=== PATIENT | male | born 1950 | race Caucasian/White ===

== ENCOUNTER 2020-05-21 10:57 | Emergency (ER) | payer MEDICARE ==
[~2020-05-21] VITALS: Ht 182.9 cm; Wt 110.2 kg
[2020-05-21] MEDS ORDERED: DIGITEK250 MCG PO (12:21)
[2020-05-21] MEDS ORDERED: TYLENOL325 MG PO (12:21)
[2020-05-21] MEDS ORDERED: LIPITOR20 MG (12:21)
[2020-05-21] MEDS ORDERED: ZESTRIL5 MG PO (12:22)
[2020-05-21] MEDS ORDERED: FUROSEMIDE20 MG PO (12:22)
[2020-05-21] MEDS ORDERED: GABAPENTIN300 MG PO (12:22)
[2020-05-21] MEDS ORDERED: DIVALPROEX SOD500 MG PO (12:22)
[2020-05-21] MEDS ORDERED: LEVOTHYROXINE25 MCG PO (12:22)
[2020-05-21] MEDS ORDERED: PANTOPRAZOLE SO40 M2 PO (12:23)
[2020-05-21] MEDS ORDERED: LOPERAMIDE MISC (12:23)
[2020-05-21] MEDS ORDERED: METFORMIN HCL500 MG PO (12:23)
[2020-05-21] MEDS ORDERED: METOPROLOL SUC100 MG PO (12:23)
[2020-05-21] MEDS ORDERED: RISPERDAL0.5 MG PO (12:25)
[2020-05-21] MEDS ORDERED: XARELTO20 MG PO (12:25)
[2020-05-21] MEDS ORDERED: THERA-TABS1 EACH PO (12:26)
--- NOTE | 2020-05-21 18:17 | EKG ---
[facility] [address] [facility] [place], [place] [address] Signed Atrial fibrillation with rapid ventricular response Rightward axis Abnormal QRS-T angle, consider primary T wave abnormality Abnormal ECG No previous ECGs available Confirmed by GURDEEP MARTINEZ DO ([id number]) on 05/21/2020 6:17:14 PM Electronically Signed By: GURDEEP MARTINEZ DO 05/21/20 1817 PATIENT NAME: DELIANELY JOSE Electrocardiogram DATE OF : 52 PHYSICIAN: GURDEEP MARTINEZ DO REPORT #: [id number] REPORT IS CONFIDENTIAL AND NOT TO BE RELEASED WITHOUT AUTHORIZATION
== END 2020-05-21 14:18 | disposition home or self-care (01) ==
LOC: ED 10:57
DX: I50.9 Heart failure, unspecified (principal); I48.91 Unspecified atrial fibrillation; J44.9 Chronic obstructive pulmonary disease, unspecified; F17.200 Nicotine dependence, unspecified, uncomplicated; Z79.899 Other long term (current) drug therapy; Z79.84 Long term (current) use of oral hypoglycemic drugs
CPT/HCPCS: 71045; 80053; 83735; 83880; 84484; 85025; 93005; 93010; 96374; 99285-25; J1940

== ENCOUNTER 2020-06-03 05:14 | Emergency (ER) | payer MEDICARE ==
[~2020-06-03] VITALS: Ht 182.9 cm; Wt 119.0 kg
[~2020-06-03 05:14] MED LIST: DIGITEK250 MCG PO; DIVALPROEX SOD500 M1 PO; FUROSEMIDE20 MG PO; GABAPENTIN300 MG PO; LEVOTHYROXINE25 MCG PO; LIPITOR20 MG PO; LOPERAMIDE2 MG PO; METFORMIN HCL500 MG PO; METOPROLOL SUC100 MG PO; PANTOPRAZOLE SO40 MG PO; RISPERDAL0.5 MG PO; THERA-TABS1 EACH PO; TYLENOL325 MG PO; XARELTO20 MG PO; ZESTRIL5 MG PO
--- OUTSIDE RECORDS SUMMARY | 2020-06-03 05:16 | XMS ---
PreManage Notification: NELY LIN Security Glacing Machine Tender Events No recent Security Events currently on file CRITERIA MET - [facility] - 2 Visits in 30 Days CARE PROVIDERS There are no care providers on record at this time. Alfredo has no Care Guidelines for this patient. [facility] MO[facility] NOTE: Visits indicate total known visits. ED/C VISIT TRACKING (12 MO.) 06/03/2020 05:[address] [facility] [place] TYPE: Emergency COMPLAINT: - SOB 05/21/2020 10:[address] [facility] [place] TYPE: Emergency COMPLAINT: - SOB, HIGH B/P DIAGNOSES: - Unspecified atrial fibrillation - intermediate (current) use of oral hypoglycemic drugs - Chronic obstructive pulmonary disease, unspecified - Heart failure, unspecified - Shortness of breath - Other extermination supervisor (current) drug therapy - Nicotine dependence, unspecified, uncomplicated INPATIENT VISIT TRACKING (12 MO.) No inpatient visits to display in this time frame [email or web address]
--- NOTE | 2020-06-04 11:10 | EKG ---
[facility] [address] [facility] [place] [address] Signed Atrial fibrillation with rapid ventricular response Incomplete right bundle branch block Nonspecific ST abnormality Abnormal ECG When compared with ECG of 21-MAY-2020 11:09, Nonspecific T wave abnormality now evident in Lateral leads Confirmed by CASSIE KEN MD ([id number]) on 06/04/2020 11:09:54 AM Electronically Signed By: CASSIE KEN MD 06/04/20 1110 PATIENT NAME: NELY LIN Electrocardiogram DATE OF : 52 PHYSICIAN: CASSIE KEN MD REPORT #: [id number] REPORT IS CONFIDENTIAL AND NOT TO BE RELEASED WITHOUT AUTHORIZATION
== END 2020-06-03 06:19 | disposition left against medical advice (07) ==
LOC: ED 05:14
DX: R06.00 Dyspnea, unspecified (principal); I48.91 Unspecified atrial fibrillation; F17.200 Nicotine dependence, unspecified, uncomplicated; J44.9 Chronic obstructive pulmonary disease, unspecified; Z79.899 Other long term (current) drug therapy; Z79.84 Long term (current) use of oral hypoglycemic drugs
CPT/HCPCS: 71045; 80053; 80162; 83735; 83880; 84484; 85025; 85610; 85730; 93005; 93010; 96374; 96375; 99285-25; J1940

== ENCOUNTER 2020-06-03 07:49 | Inpatient (IN) | payer MEDICARE ==
[~2020-06-03] VITALS: Ht 182.9 cm; Wt 113.3 kg
[~2020-06-03 07:49] MED LIST changes: +LOPERAMIDE MISC; -LOPERAMIDE2 MG PO
--- OUTSIDE RECORDS SUMMARY | 2020-06-03 07:52 | XMS ---
PreManage Notification: NELY LIN Security [employer] Sales Manager Events No recent Security Events currently on file CRITERIA MET - [facility] - 2 Visits in 30 Days CARE PROVIDERS There are no care providers on record at this time. Alfredo has no Care Guidelines for this patient. Jesus VISIT COUNT (12 MO.) 3 [facility] [place] [facility]. TOTAL 3 NOTE: Visits indicate total known visits. ED/[facility] VISIT TRACKING (12 MO.) 06/03/2020 07:50 [facility] [place] TYPE: Emergency COMPLAINT: - SHORTNESS OF BREATH 06/03/2020 05:15 [facility] [place] TYPE: Emergency COMPLAINT: - SOB 05/21/2020 10:58 [facility] [place] TYPE: Emergency COMPLAINT: - SOB, HIGH B/P DIAGNOSES: - Unspecified atrial fibrillation - implementation project coordinator (current) use of oral hypoglycemic drugs - Chronic obstructive pulmonary disease, unspecified - Heart failure, unspecified - Shortness of breath - Other social sciences professor (current) drug therapy - Nicotine dependence, unspecified, uncomplicated INPATIENT VISIT TRACKING (12 MO.) No inpatient visits to display in this time frame [email or web address]
--- NOTE | 2020-06-03 13:11 | NUR ---
PT RECEIVED FROM ER. PT ON ROOM AIR, PT STATES FEELING SOB ESPECIALLY WITH EXERTION, O2 SATS 98%, LUNG SOUNDS COARSE, OCCASIONAL DRY COUGH. PT WITH DILTIAZE, GGT AT 5MG/HR INTIALLY, INCREASED TO 10MG/HR PER PARAMETERS, HR IN 110-120S, HYPERTENSIVE. PT GIVEN DIGOXIN 250MG IV, LASIX 80MG IV AND 2G MAG RIDER PER ORDER. PT WITH FREQUENT USE OF URINAL, ASSISTED TO BSC AND HAD BM. 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 PT WITH 3+ EDEMA IN BLE, 1+ EDEMA IN THIGHS AND 1+ EDEMA IN LOWER ABD AND BACK. PT BLOOD GLUCOSE 124, SS HUMALOG HELD. PT GIVEN SUGAR FREE PUDDING AND DIET PEPSI FOR LUNCH, DECLINES ANYTHING ELSE. CALL LIGHT WITHIN REACH, CAREGIVER AT BEDSIDE. PT DENIES OTHER NEEDS AT THIS TIME.
--- NOTE | 2020-06-03 13:57 | NUR ---
PATIENT REFUSED MARIA CATH. NURSE ATTEMPTED TO EXPLAIN MEDICAL INDICATION, PATIENT INTERRUPTED AND REPLIED ABSOLUTLY "NOT." CAREGIVER IN THE ROOM ASKED HIM TO NOT BE RUDE, PATIENT ASKED CAREGIVER TO LEAVE.
--- NOTE | 2020-06-03 14:03 | NUR ---
pt. urinated in bed. changed bed linens and gowns.
--- NOTE | 2020-06-03 14:15 | NUR ---
PT SITTING UP TO EDGE OF BED, ATTEMPTING TO WALK TO BATHROOM, ASSISTED BACK TO BED, ASSISTED TO USE URINAL. PT STATING WE ARE KEEPING HIM HOSTAGE, ASKING TO LEAVE, ASKI FOR A TAXI, BECAME VERBALLY AGRESSIVE AND AGGITATED. MULTIPLE RN ATTEMPTED TO SPEAK WITH PT BUT PT UNWILLING TO COOPERATE. CALLED AND REQUESTED TO COME TO ROOM PT IS REQUESTING TO LEAVE AMA. AMA PAPER FILLED OUT. PT NOW AGREEABLE TO LAY DOWN AND SLEEP AND STAY UNTIL 1800.
--- NOTE | 2020-06-03 14:41 | NUR ---
PT ASSISTED WITH USING URINAL, VOIDED 275, ADDITIONAL URINE ON BED. PT INTITIALLY ASKING FOR CLOTHING, BUT THEN STATES HE IS WILLING TO STAY UNTIL TOMORROW AM. COOPERATIVE TO LAY BACK IN BED. PT ASKED IF HE WOULD BE OK WITH TESTING AND REGULATING TECHNICIAN COMPLETING ORDERED ECHO, PT REFUSING.
--- NOTE | 2020-06-03 15:15 | NUR ---
PT UP AND INSISTING TO LEAVE AMA, AMA PAPER SIGNED. PT ASSISTED TO GET DRESSED. IV CATH REMOVED. PT BELONGINGS RETURNED. PT AWAITING RIDE.
--- NOTE | 2020-06-03 16:00 | NUR ---
PT DC AMA AT 1540. CAREGIVER SADI PROVIDED RIDE HOME.
== END 2020-06-03 15:40 | disposition left against medical advice (07) | DRG 308 ==
LOC: ED 07:49 → CCU 11:14
PROVIDERS: ADMIT Internal Medicine; ATTEND Internal Medicine
DX: I48.21 Permanent atrial fibrillation (principal); I50.33 Acute on chronic diastolic (congestive) heart failure; I11.0 Hypertensive heart disease with heart failure; Z20.828 Contact with and (suspected) exposure to other viral communicable diseases; E11.42 Type 2 diabetes mellitus with diabetic polyneuropathy; J44.9 Chronic obstructive pulmonary disease, unspecified; E03.9 Hypothyroidism, unspecified; F17.200 Nicotine dependence, unspecified, uncomplicated; E78.5 Hyperlipidemia, unspecified; E11.51 Type 2 diabetes mellitus with diabetic peripheral angiopathy without gangrene; Z53.29 Procedure and treatment not carried out because of patient's decision for other reasons; Z95.820 Peripheral vascular angioplasty status with implants and grafts; Z87.820 Personal history of traumatic brain injury; Z79.899 Other long term (current) drug therapy; Z79.01 Long term (current) use of anticoagulants; Z79.84 Long term (current) use of oral hypoglycemic drugs
CPT/HCPCS: 36600; 80164; 82803; 83036; 83605; 83735; C9803; J0456; J0696; J1160; J1940; J3475; J7060; U0003

== ENCOUNTER 2020-06-04 07:50 | Inpatient (IN) | payer MEDICARE ==
[~2020-06-04] VITALS: Ht 182.9 cm; Wt 101.8 kg
[~2020-06-04 07:50] MED LIST changes: -LOPERAMIDE MISC; +LOPERAMIDE2 MG PO
--- OUTSIDE RECORDS SUMMARY | 2020-06-04 07:52 | XMS ---
PreManage Notification: NELY LIN Security Rubber Production Machine Operator Events No recent Security Events currently on file CRITERIA MET - [facility] - 2 Visits in 30 Days CARE PROVIDERS There are no care providers on record at this time. Alfredo has no Care Guidelines for this patient. Jesus VISIT COUNT (12 MO.) [address] [facility] TOTAL 4 NOTE: Visits indicate total known visits. ED/C VISIT TRACKING (12 MO.) 06/04/2020 07:[address] [facility] [place] TYPE: Emergency COMPLAINT: - SOB 06/03/2020 07:50 [facility] [place] TYPE: Emergency COMPLAINT: - SHORTNESS OF BREATH 06/03/2020 05:15 [facility] [place] TYPE: Emergency COMPLAINT: - SOB 05/21/2020 10:58 [facility] [place] TYPE: Emergency COMPLAINT: - SOB, HIGH B/P DIAGNOSES: - Unspecified atrial fibrillation - FCI (current) use of oral hypoglycemic drugs - Chronic obstructive pulmonary disease, unspecified - Heart failure, unspecified - Shortness of breath - Other resource management specialist (current) drug therapy - Nicotine dependence, unspecified, uncomplicated INPATIENT VISIT TRACKING (12 MO.) 06/03/2020 11:14 [facility] [place] TYPE: Critical Care COMPLAINT: - CHF EXACERBATION DIAGNOSES: - Acute on chronic diastolic (congestive) heart failure - FCI (current) use of anticoagulants - Hyperlipidemia, unspecified - Hypertensive heart disease with heart failure - Personal history of traumatic brain injury - Other halfway (current) drug therapy - Permanent atrial fibrillation - pizza chef (current) use of oral hypoglycemic drugs - Type 2 diabetes mellitus with diabetic polyneuropathy - Hypothyroidism, unspecified - Type 2 diabetes mellitus with diabetic peripheral angiopathy without gangrene - Procedure and treatment not carried out because of patient's decision for other reasons - Peripheral vascular angioplasty status with implants and grafts - Nicotine dependence, unspecified, uncomplicated - Chronic obstructive pulmonary disease, unspecified - Contact with and (suspected) exposure to other viral communicable diseases [email or web address]
--- NOTE | 2020-06-04 11:40 | NUR ---
Patient arrives from ED via stretcher with ER Nurse. Continues on Diltiazem drip at this time. Moves from stretcher to bed without assist. Heartrate increases with movement. Urinates twice after initial arrival to room 129. Assessment compeleted. Alert and oriented at this time. Informed of diet and fluids restriction. Verbalizes understanding.
--- NOTE | 2020-06-04 13:43 | NUR ---
SITTING IN BED, HEAD OF BED ELEVATED. CONTINENT OF URINE. DENIES NEEDS. CALL LIGHT IN REACH, BED RAILS UP X2.
--- NOTE | 2020-06-04 16:10 | NUR ---
PATIENT IN BED, JUST FINISHED PEEING. WATCHING TV. HE SAID HE LIVES ALONE AND EATS OUT A LOT. HE HAS NEVER BEEN TOLD TO FOLLOW A LOW SODIUM DIET BEFORE. I EXPLAINED THAT WE RECOMMEND NO MORE THAN 2,400 MG SODIUM FOR THE WHOLE DAY, THIS INCLUDES WHAT IS IN FOOD AND WHAT YOU ADD TO FOOD. HE LIKES POTTS - I TOLD HIM THAT IS A HIGH SODIUM FOOD THAT HE NEEDS TO LIMIT. I ALSO ENCOURAGED HIM TO COOK MORE AT HOME, BUT IT TAKES TIME TO GET USED TO A NEW HABIT SUCH THIS. HE DOES LOOK AT FOOD LABELS BUT DOES NOT PAY MUCH ATTENTION TO SODIUM. I SUGGESTED HE START LOOKING AT SODIUM CONTENT OF FOODS. PROVIDED A LIST OF LOW SODIUM SNACKS, RECOMMENDATIONS FOR FROZEN MEALS, AND NUTRITION THERAPY FOR HEART FAILURE WHICH INCLUDES A LIST OF FOODS RECOMMENDED AND FOODS NOT RECOMMENDED. IT ALSO INCLUDES TIPS SUCH LOOK FOR "LOW-SODIUM" OR "NO SALT ADDED" PRODUCTS. KEPT IT BRIEF THIS AFTERNOON. HE WOULD BENEFIT FROM A FOLLOW-UP VISIT TO REINFORCE THE IMPORTANCE OF A LOW SODIUM DIET. HE IS ON A 60 GM CONSISTENT CARB DIET WITH 1600 ML FR CURRENTLY. WILL PUT A NOTE INTO DR. KEN TO SEE IF HE WILL ADD 2 GRAM SODIUM FOR THE SECONDARY DIET.
--- NOTE | 2020-06-04 16:25 | NUR ---
REMAINS IN BED AT THIS TIME. CARDIZEM DRIP INFUSING. ALERT AND ORIENTED. ASSESSMENT COMPLETED.
--- NOTE | 2020-06-04 17:02 | NUR ---
Dr. Perez informed of short run of V-tach and updated on patient status. No new orders at this time.
--- NOTE | 2020-06-04 17:34 | NUR ---
RUN OF V-TACH [address] KEN NOTIFIED. TELEPHONE ORDERS READ BACK DR. KEN/ Alessia VIZCAINO, RN, FOR STAT MAGNESIUM AND BNP LEVELS AND MAGNESIUM 2GM IVPB X1 NOW. LAB NOTIFIED.
--- NOTE | 2020-06-04 18:11 | NUR ---
Patient in bed, educated on medications being administered and reason for more blood work. Verbalizes understanding.
--- NOTE | 2020-06-04 18:35 | NUR ---
INFORMED DR. KEN OF MAG LEVEL. TELEPHONE ORDERS READ BACK DR. KEN/Alessia VIZCAINO RN, FOR MAGNESIUM SULFATE IVPB 2GM X1 AFTER PREVIOUS MAG SULFATE HAS INFUSED.
--- NOTE | 2020-06-04 20:00 | NUR ---
PT USED HIS CALL LIGHT TO ASK FOR PUDDING AND JELLO. I CHECKED WITH HIS RN FADUMO. GAVE HIM BOTH. PT NEEDS NOTHING MORE AT THIS TIME.BEDSIDE TABLE AND CALL LIGHT IN REACH.
--- NOTE | 2020-06-04 20:15 | NUR ---
IV MAG FINISHED, SITE WNL. SCHEDULED MEDS PROVIDED. PATIENT IN GOOD SPIRIRTS. VISITOR AT BEDSIDE. HR 100, A.FIB.
--- NOTE | 2020-06-04 21:00 | NUR ---
BLOOD SUGAR DONE AND CHARTED. INFORMED MARTIN THORNE
--- NOTE | 2020-06-04 21:30 | NUR ---
EVENING MEDS PROVIDED PER ORDER. PATIENT EATING A SALAD. PATIENT DENIES FEELING SOB. NO PAIN OR NAUSEA. VS STABLE. HR CONTROLLED, 90-100 AT REST. AFIB. PATIENT REQUEST HIS LIGHTS BE TURNED OUT. CALL LIGHT IN REACH. WARM BLANKET PROVIDED.
--- NOTE | 2020-06-04 23:05 | NUR ---
ASSISTED PATIENT UP TO THE BATHROOM. PATIENT AMBULATES WELL. HR UP TO 115 WITH ACTIVITY. PATIENT REPORTS HAVING A NORMAL BM. FRESH LINENS ON BED. WARM BLANKET PROVIDED. PATIENT DENIES FURTHER NEEDS. CALL LIGHT IN REACH.
--- NOTE | 2020-06-05 02:27 | NUR ---
SCHEUDLED MEDS PROVIDED PER ORDER. PATIENT SLEEPING SOUNDLY. WOKE TO LOUD VOICE. ASSISTED PATIENT TO USE THE URNAL. PATIENT DENIED ANY FURTHER NEEDS. VS STABLE. PATIENT DID REQUEST BP CUFF OFF.
--- NOTE | 2020-06-05 04:30 | NUR ---
PATIENT OUT OF BED AND INTO THE BATHROOM WITHOUT CALLING. PATIENT APPEARS STEADY ON HIS FEET. DISCUSSED IMPORTANCE OF USING CALL LIGHT BEFORE GETTING UP, PATIENT AGREES TO DO THIS IN THE FUTURE FOR SAFETY. PATIENT PROVIDED A PUDDING AND CARDIAC LEADS REPLACED. VS STABLE. PATIENT IS IN GOOD SPIRITS AND DENIES ANY FURTHER NEEDS AT THIS TIME.
--- NOTE | 2020-06-05 07:30 | NUR ---
SHIFT REPORT RECIEVED FROM CREDIT CONTROL ASSISTANT RN. PATIENT RESTING IN BED ON HIS SIDE AT THIS TIME. CALL LIGHT IN REACH. WILL CONTINUE TO CLOSELY MONITOR.
--- NOTE | 2020-06-05 09:30 | NUR ---
PATIENT SHIFT ASSESSMENT COMPELTED. PATIENT RESTING IN BED ON HIS SIDE AT THSI TIME. PATIENT WAKES AND IS APPROPRIATE AT THIS TIME. BREATH SOUNDS CLEAR AND COARSENESS NOTED IN BASES. PATIENT ON RA. PATIENT DENIES SOB. PATIENTS HR IS AROUND 100-110 AT REST. MORNING MEDICATIONS GIVEN. PATIENT USES URINAL ON HIS OWN AT THE BEDSIDE. PATIENT ATE BREAKFAST ALREADY THIS AM. EDEMA NOTED IN HIS BLE. NO OTHER ISSUES AT THIS TIME. WILL CONTINUE TO CLOSELY MONITOR.
--- NOTE | 2020-06-05 11:00 | NUR ---
MD KEN IN TO SEE PATIENT. PATIENTS HR INCREASED ONCE PATIENT AWAKE AND SITTING UP IN BED. PATIENT DENIES PALPITATIONS AND SOB. SEE NEW ORDERES. PATIENT ORDERED SALAD. CALL LIGHT IN REACH. WILL CONTINUE TO CLOSELY MONITOR.
--- NOTE | 2020-06-05 13:00 | NUR ---
PATIENT HAS BEEN MORE AWAKE THIS AFTERNOON. PATIENT RECIEVED LASIX AND HAS HAD A GOOD RESPONSE. PATIENT IS FOLLOWING FLUID RESTRICTIONS AND RECOMENDATIONS. PATIENTS HR IS STILL AROUND 100-115'S AT TIMES. WILL CONTINUE TO CLSOELY MONTIOR.
--- NOTE | 2020-06-05 15:10 | NUR ---
PT UP TO BATHROOM TO HAVE A BM. LINENS CHANGED, ATTENDS CHANGED.
--- NOTE | 2020-06-05 15:30 | NUR ---
MEDICATIONS ADMINISTERED, SEE MAR. PATIENT REQUESTED TO HAVE FRUIT AND SOUP. EDUCATED THE SOUP WOULD PUT HIM OVER HIS SODIUM DIET WITH DINNER COMING UP HER SHORTLY. PATIENT IS AGREEABLE. NO OTHER NEEDS AT THSI TIME. PATIENT WATCHING TV. WILL CONTINUE TO CLOSELY MONITOR.
--- NOTE | 2020-06-05 16:45 | NUR ---
PATIENTS HR REMAINS ABOUT 100-110. MD KEN STOPPED IN TO CHECK ON PATIENTS AND UPDATED. SEE NEW ORDERES. NO OTHER NEEDS AT THIS TIME. WILL CONTINUE TO CLOSELY MONITOR.
--- NOTE | 2020-06-05 18:06 | NUR ---
PATIENT ASSISTED UP TO THE BATHROOM. PATIENT IS A STAND-BY ASSIST FOR CORD MANAGEMENT. PATIENT TOLERATED WELL. BEDDING CHANGED, FLOOR CLEANED, AND GARBAGES EMPTIED AT THIS TIME. PATIENT FINISHED WITH DINNER. NO OTHER NEEDS AT THIS TIME. WILL CONTINUE TO CLOSELY MONTIOR.
--- NOTE | 2020-06-05 20:11 | NUR ---
PATIENT PROVIDED WITH EVENING MEDS. HR 95-105 AT REST. PATIENT IS IN GOOD SPIRIRTS, HAS A VISITOR AT THE BEDSIDE. DENIES ANY CONCERNS AT THIS TIME. VS STABLE. IV SITES FLUSHED EASY, APPEAR WNL. ALLOWED PATIENT TO VISIT WITH GUEST.
--- NOTE | 2020-06-05 21:28 | NUR ---
PATIENT PROVIDED WITH SCHEDULED MEDS. URNAL EMPTIED. CARDIAC LEADS REPLACED. WARM BLANKET PROVIDED. PATIENT DENIED FURTHER NEEDS. CALL LIGHT IN REACH.
--- NOTE | 2020-06-05 23:48 | NUR ---
PATIENT CALLED TO REQUEST A SNACK. PROVIDED PATIENT WITH A COUPLE CRACKERS. PATIENT ABLE TO SIT AT THE EDGE OF THE BED. LUNG SOUNDS ARE CLEAR. URNAL AMPTIED. PATIENT REPORTS FEELING THAT HIS FEET ARE MUCH LESS SWOLLEN AND FEEL BETTER THAN THEY HAVE IN A WHILE. 1+ EDEMA NOTED. PROVIDED PATIENT WITH WARM BLANKET AND ASSISTED TO REPOSITION IN BED. CALL LIGHT IN REACH.
--- NOTE | 2020-06-06 01:51 | NUR ---
PATIENT PROVIDED WITH SCHEUDLED MEDS. PATIENT IS ALERT AND ORIENTED. VS STABLE. GOOD URINE OUTPUT. PATIENT DENIES ANY CONCERNS.
--- NOTE | 2020-06-06 04:10 | NUR ---
PATIENT APPEARS TO BE SLEEPING SOUNDLY. HR 60'S, AFIB. ALLOWED PATIENT TO REST. CALL LIGHT IN REACH.
--- NOTE | 2020-06-06 06:24 | NUR ---
PATIENT REQUESTING FREQUENT SNACKS. BREAKFAST ORDER TAKEN. ENCOURAGED PATIENT TO STICK TO HIS DIET ORDER.
--- NOTE | 2020-06-06 07:30 | NUR ---
PATIENT SHIFT REPORT RECIEVED FROM MANAGER OF TRAINING AND DEVELOPMENT RN. PATIENT RESTING IN BED AT THIS TIME. WILL CONTINUE TO CLOSELY MONITOR
--- NOTE | 2020-06-06 09:30 | NUR ---
PATIENT ASSESSMENT COMPLETED. PATIENT BREATH SOUNDS CLEAR. PATIENT STATES "I FEEL MUCH BETTER TODAY". PATIENT ATE BREAKFAST WITH NO ISSUES. NO OTHER NEEDS AT THIS TIME. WILL CONTINUE TO CLOSELY MONITOR.
--- NOTE | 2020-06-06 11:30 | NUR ---
PATIENT WILL BE GOING DOWN FOR A CHEST X-RAY. PATIENT REMOVED FROM MONITORS PER MD ORDERS. PATIENT IS NOW A MEDICAL PATIENT. WILL TRANSFER TO THE MEDICAL FLOOR WHEN THEY HAVE A ROOM AVAILABLE. WILL CONTINUE TO CLSOELY MONITOR.
--- NOTE | 2020-06-06 13:30 | NUR ---
PATIENT RETING IN BED. PATIENT HAS BEEN UP TO THE BATHROOM AND TOLERATES WALKING WELL. PATIENT WENT DOWN FOR A CHEST X-RAY THIS AFTERNOON. ALL LINEN CHANGED AT THAT TIME. ASSESSMENT REMAINS UNCHANGED. WILL CONTINUE TO CLOSELY MONITOR.
--- NOTE | 2020-06-06 15:30 | NUR ---
PATIENT CALLED AND IS UP TO THE BATHROOM. PATIENT TOLERATES WALKING AROUND IN THE ROOM. PATIENT IS A MEDICAL PATIENT, BUT WILL STAY HERE TONIGHT A HOUSE CONVIENCE PATIENT. PATIENTS DINNER ORDERED. PATIENT DENIES ANY OTHER NEEDS AT THIS TIME. PATIENT FREQUENTLY ASKS FOR JELLO/PUDDING/CRACKERS. REMINDED OF DIET RESTRICTIONS. PATIENT HAS BEEN COMPLIANT WITH RESTRICTIONS AND FOLLOWING GUIDANCE. WILL CONTINUE TO CLOSELY MONITOR.
--- NOTE | 2020-06-06 17:39 | NUR ---
PATIENT FINISHED HIS DINNER. PATIENT UP AND WALKED AROUND IN THE ROOM AND NOW BACK TO BED. PATIENT DENIES ANY OTHER NEEDS AT THIS TIME. WILL CONTINUE TO CLOSELY MONTIOR.
--- NOTE | 2020-06-06 17:42 | NUR ---
Update from RN. Pt is sleeping. May go home tomorrow he has CHF and chronic Afib. They have been adjusting multiple meds.
--- NOTE | 2020-06-06 18:22 | NUR ---
PATIENT CALLED STAFF TO ASSIST BECAUSE HE MISSED THE URINAL A LITTLE AND GOT SOME URINE ON THE FLOOR. URINAL EMPTIED AND FLOOR CLEANED UP. PATIENT DENIED ANY OTHER NEEDS AT THIS TIME. WILL CONTINUE TO CLOSELY MONITOR.
--- NOTE | 2020-06-06 19:30 | NUR ---
REPORT RECEIVED FROM DAY SHIFT RN. PT HAS VISITOR IN WITH HIM.
--- NOTE | 2020-06-06 19:41 | NUR ---
IN TO CHECK ON PT AND DO ASSESSMENT. FRIEND HAS LEFT FOR THE NIGHT. PT DENIES PAIN/SOB. LYING IN BED WATCHING TV. FEW CRACKLES HEARD IN VERY BASE OF LUNGS. PT GIVEN SUGARFREE PUDDING PER REQUEST.
--- NOTE | 2020-06-06 20:06 | NUR ---
DR MARTINEZ IN TO ROUND ON UNIT, GIVEN UPDATE, NO NEW ORDERS.
--- NOTE | 2020-06-06 21:30 | NUR ---
HS MEDS GIVEN, PT LYING DOWN WANTING TO SLEEP FOR THE NIGHT.
--- NOTE | 2020-06-06 22:30 | NUR ---
PT AWAKENS AND ASKS FOR PUDDING.
--- NOTE | 2020-06-07 | NUR ---
MORE PUDDING GIVEN PER REQUEST AND PT UP TO VOID INTO URINAL.
--- NOTE | 2020-06-07 03:00 | NUR ---
PT AWAKE AND REQUESTING PUDDING.
--- NOTE | 2020-06-07 05:22 | NUR ---
PT REQUESTING PUDDING SNACK.
--- NOTE | 2020-06-07 07:30 | NUR ---
PATIENT SHIFT REPORT RECIEVED FROM INTERN RN. PATIENT RESTING IN BED. PER REPORT PATIENT IS HUNGRY AND REQUESTING HIS BREAKFAST RAFAELA. NO OTHER NEEDS AT THIS TIME. WILL CONTINUE TO CLOSELY MONITOR.
--- NOTE | 2020-06-07 08:15 | NUR ---
CALL DOWN AND GOT PATIENTS BREAKFAST EARLIER. PATIENT VERY APPRECIATIVE. PATIENT DENIES ANY OTHER NEEDS AT THIS TIME. WILL CONTINUE TO CLOSELY MONITOR.
--- NOTE | 2020-06-07 10:00 | NUR ---
SPOKE WITH MD ABOUT PLAN OF CARE PRIOR TO GIVING MEDICATIONS. PER MD WILL HOLD CARDIZEM THIS AM AND MONITOR HIS HR FOR THE NEXT SEVERAL HOURS. PATIENT STATED INTITIALLY HE WANTS TO GO NOW, BUT WAS THEN AGREEABLE TO STAYING THROUGH LUNCH TIME. MD MARTINEZ AWARE. PATIENT DECLINED LASIX AT THIS TIME, BUT STATES HE WOULD TAKE IT PRIOR TO LEAVING. PATIENT UNDERSTANDS THE IMPORTANCE OF THIS MEDICATION. WILL CALL AND MAKE A FOLLOW-UP APPOINTMENT FOR PATIENT WITH MD GAONA. PATIENTS ASSESSMENT COMPLETED. PATIENTS BREATH SOUNDS CLEAR WITH FINE CRACKLES IN BASES. PATIENTS SPO2 98% ON RA. PATIENT DENIES SOB. BOWEL TOENS ACTIVE. PATIENT HAS A GOOD APPETITE. NO OTHER NEEDS AT THIS TIME. WILL CONTINUE TO CLOSELY MONITOR.
[2020-06-07] MEDS ORDERED: DIGITEK250 MCG PO (12:35)
[2020-06-07] MEDS ORDERED: ELIQUIS5 MG PO (12:36)
[2020-06-07] MEDS ORDERED: METOPROLOL SUC100 MG PO (12:38)
[2020-06-07] MEDS ORDERED: FUROSEMIDE40 MG PO (12:38)
--- NOTE | 2020-06-07 12:45 | NUR ---
MD HERE TO SEE PATIENT. PER MD PATIENT MAY DISCHARGE HOME. PATIENT AGREEABLE TO PLAN OF CARE AND MEDICATION CHANGES. WILL REVIEW INSTRUCTIONS WITH PATIENT. NO OTHER NEEDS AT THIS TIME.
--- NOTE | 2020-06-07 13:30 | NUR ---
PHARMACY IN TO REVIEW MEDICATION CHANGES. PATIENT OKAYED STAFF TO CALL SADI TO SPEAK WITH HER ABOUT MEDICATION CHANGES. SADI DID NOT ANSWER AND HER VOICEMAIL WAS FULL. WILL TRY AND CONTACT AGAIN. PATIENT REPEATED INFORMATION BACK TO PHARMACY AND STAFF AND STATES HE UNDERSTANDS CHANGES. REVIEWED EDUCATION ABOUT CHF, A.FIB, AND DIET CHANGES FOR HEART FAILURE. APPOINTMENT MADE WITH DR. GAONA FOR 06-11-20. PATIENT REPEATED DATE BACK TO STAFF SEVERAL TIMES AND STATES "I PROMISE TO GO AND FOLLOW-UP WITH HER". REMINDER CARD AND PAPERWORK SENT WITH PATIENT. THIS RN WHEELED PATIENT TO THE FRONT. PATIENT AMBULATED OUT WITH NO OTHER QUESTIONS AT THAT TIME.
== END 2020-06-07 13:25 | disposition home or self-care (01) | DRG 292 ==
LOC: ED 07:50 → CCU 10:47
PROVIDERS: ADMIT Internal Medicine; ATTEND Internal Medicine
DX: I11.0 Hypertensive heart disease with heart failure (principal); I48.21 Permanent atrial fibrillation; I50.33 Acute on chronic diastolic (congestive) heart failure; Z20.828 Contact with and (suspected) exposure to other viral communicable diseases; J44.9 Chronic obstructive pulmonary disease, unspecified; E11.51 Type 2 diabetes mellitus with diabetic peripheral angiopathy without gangrene; E78.5 Hyperlipidemia, unspecified; F39 Unspecified mood [affective] disorder; E11.42 Type 2 diabetes mellitus with diabetic polyneuropathy; E03.9 Hypothyroidism, unspecified; F17.200 Nicotine dependence, unspecified, uncomplicated; Z91.19 Patient's noncompliance with other medical treatment and regimen; Z87.820 Personal history of traumatic brain injury; Z79.899 Other long term (current) drug therapy; Z95.820 Peripheral vascular angioplasty status with implants and grafts; Z79.01 Long term (current) use of anticoagulants; Z79.84 Long term (current) use of oral hypoglycemic drugs
CPT/HCPCS: 36415; 51702; 71045; 71046; 80048; 80053; 80162; 83036; 83605; 83735; 83880; 84484; 85025; 87070; 87205; 93306; 94667; 99285-25; 99406; J1160; J1815; J1940; J2405; J3475; Q0177; U0003

== ENCOUNTER 2020-09-26 09:05 | Emergency (ER) | payer MEDICARE ==
[~2020-09-26] VITALS: Ht 182.9 cm; Wt 128.4 kg
[~2020-09-26 09:05] MED LIST changes: +ELIQUIS5 MG PO; +FUROSEMIDE40 MG PO
[2020-09-26] MEDS ORDERED: FUROSEMIDE20 MG PO (09:14)
[2020-09-26] MEDS ORDERED: OMEPRAZOLE40 MG PO (09:15)
[2020-09-26] MEDS ORDERED: XARELTO20 MG PO (09:19)
[2020-09-26] MEDS ORDERED: ANORO ELLIPTA1 EACH INH (09:20)
--- NOTE | 2020-09-26 13:06 | EKG ---
[facility] [address] [facility] [place] [address] Signed Undetermined rhythm Right axis deviation Incomplete right bundle branch block Right ventricular hypertrophy ST \T\ T wave abnormality, consider lateral ischemia Abnormal ECG When compared with ECG of 03-JUN-2020 05:22, Current undetermined rhythm precludes rhythm comparison, needs review T wave inversion now evident in Lateral leads Confirmed by GLORIA MARTINEZ MD ([id number]) on 09/26/2020 1:06:19 PM Electronically Signed By: GLORIA MARTINEZ MD 09/26/20 1306 PATIENT NAME: NELY LIN Electrocardiogram DATE OF : 52 PHYSICIAN: GLORIA MARTINEZ MD REPORT #: [id number] REPORT IS CONFIDENTIAL AND NOT TO BE RELEASED WITHOUT AUTHORIZATION
--- NOTE | 2020-09-27 07:22 | EKG ---
[facility] [address] [facility] [place] [address] Signed Atrial flutter with variable AV block Right axis deviation Incomplete right bundle branch block Right ventricular hypertrophy ST \T\ T wave abnormality, consider lateral ischemia Prolonged QT Abnormal ECG When compared with ECG of 26-SEP-2020 09:14, Previous ECG has undetermined rhythm, needs review Non-specific change in ST segment in Inferior leads Nonspecific T wave abnormality no longer evident in Inferior leads T wave inversion more evident in Lateral leads Confirmed by GLORIA MARTINEZ MD ([id number]) on 09/27/2020 7:22:19 AM Electronically Signed By: GLORIA MARTINEZ MD 09/27/20721 PATIENT NAME: NELY LIN Electrocardiogram DATE OF : 52 PHYSICIAN: GLORIA MARTINEZ MD REPORT #: [id number] REPORT IS CONFIDENTIAL AND NOT TO BE RELEASED WITHOUT AUTHORIZATION
--- NOTE | 2020-09-27 07:23 | EKG ---
[facility] [address] [facility] [place] [address] Signed Undetermined rhythm Low voltage QRS Right bundle branch block T wave abnormality, consider lateral ischemia Abnormal ECG When compared with ECG of 26-SEP-2020 14:26, (Unconfirmed) Abnormal ECG Confirmed by GLORIA MARTINEZ MD ([id number]) on 09/27/2020 7:23:22 AM Electronically Signed By: GLORIA MARTINEZ MD 09/27/20 0723 PATIENT NAME: NELY LIN Electrocardiogram DATE OF : 52 PHYSICIAN: GLORIA MARTINEZ MD REPORT #: [id number] REPORT IS CONFIDENTIAL AND NOT TO BE RELEASED WITHOUT AUTHORIZATION
== END 2020-09-26 16:13 | disposition short-term general hospital (02) ==
LOC: ED 09:05
DX: I50.9 Heart failure, unspecified (principal); I48.91 Unspecified atrial fibrillation; E87.2 Acidosis; X00.1XXA Exposure to smoke in uncontrolled fire in building or structure, initial encounter; J44.9 Chronic obstructive pulmonary disease, unspecified; F17.200 Nicotine dependence, unspecified, uncomplicated; Z79.899 Other long term (current) drug therapy; Z79.84 Long term (current) use of oral hypoglycemic drugs; Z20.822 Contact with and (suspected) exposure to COVID-19
CPT/HCPCS: 36600; 51702; 70450; 71045; 93005; 93010; 94660; 99291; C9803; J7121